=== PATIENT | female | born 1965 | race Caucasian/White ===

== ENCOUNTER 2021-12-01 17:25 | Emergency (ER) | payer OTHER ==
[2021-12-01] MEDS ORDERED: NORCO 5-325 TA1 EACH PO (21:31)
== END 2021-12-01 22:15 | disposition home or self-care (01) ==
LOC: FER 17:25
DX: S82.65XA Nondisplaced fracture of lateral malleolus of left fibula, initial encounter for closed fracture (principal); I10 Essential (primary) hypertension; F17.200 Nicotine dependence, unspecified, uncomplicated; W10.9XXA Fall (on) (from) unspecified stairs and steps, initial encounter; Y92.009 Unspecified place in unspecified non-institutional (private) residence as the place of occurrence of the external cause
CPT/HCPCS: 73600